=== PATIENT | female | born 1985 | race Hispanic/Latino ===

== ENCOUNTER 2025-07-21 14:41 | Emergency (ER) | payer MEDICAID ==
--- NOTE | 2025-07-21 16:12 | RAD REPORT ---
EXAM: Chest Single View HISTORY: 39 years Female chest catheter placement today COMPARISON: No prior exams FINDINGS: LUNGS/PLEURA: The lungs are clear. No pleural effusions or pneumothorax. No pulmonary edema. CARDIAC/MEDIASTINUM: Mild cardiomegaly UPPER ABDOMEN: No significant abnormality. BONES: No acute abnormality. LINES/TUBES/OTHER: Right IJ approach dialysis catheter with tip overlying the superior cavoatrial pedro ction. IMPRESSION: No evidence of acute cardiopulmonary disease.
[2025-07-21 16:23] LABS: Absolute Lymphocytes (CBC) 0.5 K/uL (0.7-4.9); Hematocrit 34.8 % (36.0-45.0); Hemoglobin 11.2 g/dL (12.0-15.0); MCH 31.7 pg (27.0-35.0); MCHC 32.3 g/dL (32.0-36.0); MCV 98.1 fL (80-100); MPV 8.9 fL (7.6-11.3); Nucleated RBC Absolute Count 0.0 (0-0); Nucleated Red Blood Cells % 0.0 % (0-0); RBC Red Blood Cell Count 3.54 M/uL (3.86-4.86); White Blood Count 7.20 thou/uL (4.3-10.9)
[2025-07-21 16:35] LABS: PT Prothrombin Time 13.0 SECONDS (10-13.0); PTT, Activated Partial Thromb 31.5 SECONDS (27.2-37.4); Protime INR 1.16
[2025-07-21 16:43] LABS: Anion Gap 12.2 mEq/L (5.0-15.0); BUN Blood Urea Nitrogen 52.0 mg/dL (7-18); Glucose Level 89.0 mg/dL (74-106)
[2025-07-21 16:49] LABS: Magnesium 2.2 mg/dL (1.6-2.4); Potassium 4.2 mEq/L (3.5-5.1)
[2025-07-21] MEDS ORDERED: LIDOCAINE 2% W/EPI 1:200,000 MPF 20 ML VIAL IM ONE (16:49)
[2025-07-21] MEDS ORDERED: FENTANYL CITR 100 MCG/2 ML ONE (17:54)
--- NOTE | 2025-07-21 18:27 | EDPHYS ---
Physician Documentation [facility] Name: Adriana Albarran Age: 39 yrs Sex: Female : 1985 Arrival Date: 07/21/2025 Time: 14:41 Bed 24 Private MD: Killian Leiva HPI: 07/21 15:00 This 39 yrs old Female presents to ER via Ambulatory with complaints of cp dialysis cath problem. 15:05 Patient reports replacement of right chest Central Venous Catheter earlier today with cp some bleeding noted prior to discharge. Surgery was performed by DR Hawkins at [facility]. Patient takes Plavix daily. 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 N/A - Hysterectomy, Not me1 Historical: - Allergies: 15:02 PENICILLINS; me1 15:02 Bumetanide; me1 15:02 tramadol; me1 15:02 TETRACYCLINES; me1 15:02 METRONIDAZOLE; me1 15:02 Ampicillin; me1 15:02 Amoxicillin; me1 15:02 Levaquin; me1 15:02 meloxicam; me1 15:02 Bactrim; me1 15:02 Trazodone; me1 - PMHx: 15:02 End stage renal disease; on HD M,W,F; Lupus erythematosus; Hypertensive disorder; me1 Congestive heart failure; Myocardial infarction; - PSHx: 15:02 Coronary Angioplasty; Total abdominal hysterectomy; section; dialysis catheter me1 placement; Appendectomy; lumbar puncture x3; kidney biopsy; - Immunization history:: Adult Immunizations up to date. - Infectious Disease History:: Denies. - Social history:: Smoking status: Patient reports the use of cigarette tobacco products, smokes one-half pack cigarettes per day. ROS: 15:05 Constitutional: Negative for body aches, chills, fever, poor PO intake, cp 15:05 Cardiovascular: Positive for chest pain, Negative for edema, palpitations, cp 15:05 Respiratory: Negative for cough, shortness of breath, wheezing, 15:05 Abdomen/GI: Negative for abdominal pain, vomiting, diarrhea, constipation, 15:05 Skin: Positive for of the right side of chest, central venous catheter, Exam: 15:10 Constitutional: The patient appears in no acute distress, alert, awake, cp non-diaphoretic, non-toxic, well developed, well nourished, uncomfortable, 15:10 Head/Face: Normocephalic, atraumatic. cp 15:10 Eyes: Periorbital structures: appear normal, Conjunctiva: normal, no exudate, no injection, Sclera: no appreciated abnormality, Lids and lashes: appear normal, bilaterally, 15:10 ENT: External ear(s): are unremarkable, Nose: is normal, Mouth: Lips: moist, Oral mucosa: moist, Posterior pharynx: Airway: no evidence of obstruction, patent, 15:10 Neck: ROM/movement: is normal, is supple, without pain, no range of motions limitations, 15:10 Chest/axilla: Inspection: right upper chest dialysis catheter in place with mild active bleeding, bloody dressing in place, tender to palpation, 15:10 Cardiovascular: Rate: normal, Rhythm: regular, JVD: is not appreciated, 15:10 Respiratory: the patient does not display signs of respiratory distress, Respirations: normal, no use of accessory muscles, no retractions, labored breathing, is not present, Breath sounds: are clear throughout, no decreased breath sounds, no stridor, no wheezing, 15:10 Abdomen/GI: Inspection: abdomen appears normal, Palpation: abdomen is soft and non-tender, in all quadrants, 15:10 Neuro: Orientation: to person, place \T\ time. Mentation: is normal, Motor: moves all fours, strength is normal, Gait: is steady, at a normal pace, without difficulty, 15:44 ECG was reviewed by the Attending Physician. cp Vital Signs: 14:57 BP 131 / 76; Pulse 82; Resp 18; Temp 98; Pulse Ox 98% ; Weight 70 kg; Height 5 ft. 3 me1 in. ; Pain 0/10; 16:30 BP 126 / 77; Pulse 71; Resp 16; Pulse Ox 100% on R/A; jb4 17:15 BP 138 / 78; Pulse 72; Resp 16; Pulse Ox 100% on R/A; jb4 18:15 BP 132 / 75; Pulse 73; Resp 16; Pulse Ox 99% on R/A; jb4 14:57 Body Mass Index 27.34 (70.00 kg, 160.02 cm) me1 14:57 Pain Scale: Adult me1 MDM: 14:58 Medical Screening Exam initiated cp 16:00 Differential diagnosis: anemia, pneumothorax, hematoma. 18:25 Data reviewed: vital signs, nurses notes, lab test result(s), EKG, radiologic studies, plain films, and as a result, I will discharge patient. 18:25 I considered the following discharge prescriptions or medication management in the emergency department Medications were administered in the Emergency Department. See MAR. Care significantly affected by the following chronic conditions: Hypertension, Congestive Heart Failure, Chronic Kidney Disease. Counseling: I had a detailed discussion with the patient and/or guardian regarding the historical points, exam findings, and any diagnostic results supporting the discharge/admit diagnosis, lab results, radiology results, to return to the emergency department if symptoms worsen or persist or if there are any questions or concerns that arise at home. Response to treatment: the patient's symptoms have markedly improved after treatment, and as a result, I will discharge patient. 07/21 14:59 Order name: Basic Metabolic Panel; Complete Time: 16:51 07/21 16:51 Interpretation: Normal except: BUN 52; CRE 8.51; GFR 6; CA 8.2. 07/21 14:59 Order name: CBC with Diff; Complete Time: 16:38 07/21 16:38 Interpretation: Normal except: RBC 3.54; HGB 11.2; HCT 34.8; PLT 135; RDW 15.5; JOHANNY% cp 83.8; LYM% 6.8; LYMA 0.5. 07/21 14:59 Order name: Magnesium; Complete Time: 16:51 07/21 16:51 Interpretation: Reviewed. 07/21 14:59 Order name: PT-INR; Complete Time: 16:38 07/21 14:59 Order name: Ptt, Activated; Complete Time: 16:38 07/21 14:59 Order name: XRAY Chest (1 view); Complete Time: 16:38 07/21 18:08 Interpretation: Report review. 07/21 14:59 Order name: Cardiac monitoring; Complete Time: 15:41 07/21 14:59 Order name: EKG - Nurse/Tech; Complete Time: 15:41 07/21 14:59 Order name: IV Saline Lock; Complete Time: 15:59 07/21 14:59 Order name: Labs collected and sent; Complete Time: 15:59 07/21 14:59 Order name: O2 Per Protocol; Complete Time: 15:30 cp 07/21 14:59 Order name: O2 Sat Monitoring; Complete Time: 15:30 cp 07/21 15:16 Order name: Orthostatics; Complete Time: 15:30 cp 07/21 16:52 Order name: Dressing - Wound; Complete Time: 17:07 cp 07/21 16:52 Order name: Gloves, Sterile; Complete Time: 17:07 cp 07/21 16:52 Order name: Setup Suture Tray; Complete Time: 17:07 cp EC:44 Rate is 72 beats/min. Rhythm is regular. [place] interval is normal. QRS interval is normal. cp QT interval is normal. T waves are Inverted in lead aVR. Interpreted by me. Reviewed by me. Administered Medications: 18:02 Drug: fentaNYL (PF) IVP 25 mcg IVP once Route: IVP; Site: right hand; [facility] 18:22 Follow up: Response: No adverse reaction jb 18:22 Not Given (Physician Discretion): tranexamic [id number] mg IV at calculated rate once; jb4 administer at a rate not to exceed 100 mg per min 18:29 Not Given (Physician Discretion): lidocaine(2 %) 20 ml 5 ml Infiltration once; to jb4 bedside with epinephrine Disposition: 07/22 09:05 Co-signature as Attending Physician, Killian Anderson MD I agree with the assessment and [facility] plan of care. 14:55 Chart complete. cp Disposition Summary: 07/21/25 18:26 Discharge Ordered Notes: Location: Home cp Problem: new cp Symptoms: have improved cp Condition: Stable cp Diagnosis - Other complication of vascular dialysis catheter cp - Encounter for attention to dressings, sutures and drains cp Followup: cp - With: Private Physician - When: 1 - 2 days - Reason: Wound Recheck Discharge Instructions: - Discharge Summary Sheet cp - How to Change Your Wound Dressing cp - Central Line Dialysis Access Placement, Care After cp - Central Line Dialysis Access Placement cp Forms: - Medication Reconciliation Form cp - Antibiotic Education cp - Prescription Opioid Use cp - Patient Portal Instructions cp - Leadership Thank You Letter cp Signatures: Dispatcher [employer] Killian Au MD MD cha Page, Corey, PAStevan PAStevan cp Yang Yates RN RN jb4 Charmaine Ruvalcaba RN RN me1 Corrections: (The following items were deleted from the chart) 07/21 15:07 15:02 PMHx: dialysis catheter placement; me1 me1
--- NOTE | 2025-07-21 18:27 | ER ---
Nurse's Notes [facility] Name: Adriana Albarran Age: 39 yrs Sex: Female : 1985 Arrival Date: 07/21/2025 Time: 14:41 Bed 24 Private MD: Diagnosis: Other complication of vascular dialysis catheter;Encounter for attention to dressings, sutures and drains Presentation: 07/21 14:57 Chief complaint: Patient states: had dialysis catheter (R chest wall) replaced this me1 morning in [place]. Some bleeding noted at time of discharge but was told that dialysis would take care of it. Patient went to dialysis and they wont touch it, sent patient back to ER. Went to ER in [place] and wasn't able to be seen so they left and came here. Catheter has been bleeding since 10 am today. Has dressing to right chest wall reinforced with gauze. Reports feeling light headed. Coronavirus screen: Vaccine status: Patient reports being unvaccinated. Ebola Screen: No symptoms or risks identified at this time. Initial Sepsis Screen: Does the patient meet any 2 criteria? No. Patient's initial sepsis screen is negative. Does the patient have a suspected source of infection? No. Patient's initial sepsis screen is negative. Risk Assessment: Do you want to hurt yourself or someone else? Patient reports no desire to harm self or others. Onset of symptoms was July 21, 2025 at 10:00. 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 - Hysterectomy, Not me1 Historical: - Allergies: 15:02 PENICILLINS; me1 15:02 Bumetanide; me1 15:02 tramadol; me1 15:02 TETRACYCLINES; me1 15:02 METRONIDAZOLE; me1 15:02 Ampicillin; me1 15:02 Amoxicillin; me1 15:02 Levaquin; me1 15:02 meloxicam; me1 15:02 Bactrim; me1 15:02 Trazodone; me1 - PMHx: 15:02 End stage renal disease; on HD M,W,F; Lupus erythematosus; Hypertensive disorder; me1 Congestive heart failure; Myocardial infarction; - PSHx: 15:02 Coronary Angioplasty; Total abdominal hysterectomy; section; dialysis catheter me1 placement; Appendectomy; lumbar puncture x3; kidney biopsy; - Immunization history:: Adult Immunizations up to date. - Infectious Disease History:: Denies. - Social history:: Smoking status: Patient reports the use of cigarette tobacco products, smokes one-half pack cigarettes per day. Screenin:53 [facility] ED Fall Risk Assessment (Adult) History of falling in the last 3 months, jb4 including since admission No falls in past 3 months (0 pts) Confusion or Disorientation No (0 pts) Intoxicated or Sedated No (0 pts) Impaired Gait No (0 pts) Mobility Assist Device Used No (0 pt) Altered Elimination No (0 pt) Score/Fall Risk Level 0 - 2 = Low Risk Oriented to surroundings, Maintained a safe environment. Abuse screen: Denies threats or abuse. Nutritional screening: No deficits noted. Tuberculosis screening: No symptoms or risk factors identified. Assessment: 15:30 General: Appears in no apparent distress. comfortable, Behavior is calm, cooperative, jb4 appropriate for age, Dialysis catheter site noted to be oozing blood. Pt reports it has not stopped since it was inserted. Pt has gauze applied to the area.. Pain: Denies pain. Neuro: Level of Consciousness is awake, alert, obeys commands, Oriented to person, place, time, situation. Cardiovascular: Patient's skin is warm and dry. Respiratory: Airway is patent Respiratory effort is even, unlabored, Respiratory pattern is regular, symmetrical. Derm: Skin is intact, Skin is pink, warm \T\ dry. Musculoskeletal: Circulation, motion, and sensation intact. Range of motion: intact in all extremities. 16:30 Reassessment: Patient appears in no apparent distress at this time. Patient and/or jb4 family updated on plan of care and expected duration. Pain level reassessed. Patient is alert, oriented x 3, equal unlabored respirations, skin warm/dry/pink. 17:20 Reassessment: Patient appears in no apparent distress at this time. Patient and/or jb4 family updated on plan of care and expected duration. Pain level reassessed. Patient is alert, oriented x 3, equal unlabored respirations, skin warm/dry/pink. Provider assessing and redressing catheter site. 18:20 Reassessment: Provider at bedside assessing dressing. Report bleeding appears to have jb4 stopped and tranexamic acid is not needed at this time. 18:23 Reassessment: Patient appears in no apparent distress at this time. Patient and/or jb4 family updated on plan of care and expected duration. Pain level reassessed. Patient is alert, oriented x 3, equal unlabored respirations, skin warm/dry/pink. Vital Signs: 14:57 BP 131 / 76; Pulse 82; Resp 18; Temp 98; Pulse Ox 98% ; Weight 70 kg; Height 5 ft. 3 me1 in. ; Pain 0/10; 16:30 BP 126 / 77; Pulse 71; Resp 16; Pulse Ox 100% on R/A; jb4 17:15 BP 138 / 78; Pulse 72; Resp 16; Pulse Ox 100% on R/A; jb4 18:15 BP 132 / 75; Pulse 73; Resp 16; Pulse Ox 99% on R/A; jb4 14:57 Body Mass Index 27.34 (70.00 kg, 160.02 cm) me1 14:57 Pain Scale: Adult ky1 ED Course: 14:43 Patient arrived in ED. im 14:44 Killian Artis PA-C is PHCP. cp 14:44 Killian Anderson MD is Attending Physician. cp 15:02 Triage completed. me1 15:02 Arm band placed on Patient placed in waiting room. me1 15:53 Patient has correct armband on for positive identification. Bed in low position. Call jb4 light in reach. Side rails up X 1. Provided Education on: plan of care. 16:00 Initial lab(s) drawn, by factory laborer, sent to lab. Inserted saline lock: 22 gauge in right ts3 hand, using aseptic technique. Blood collected. Flushed with 10 mL NS. 16:00 EKG done, by television production technician. ts3 16:06 XRAY Chest (1 view) In Process Unspecified. EDMS 17:07 Yang Yates, LORI is Primary Nurse. jb4 18:47 No provider procedures requiring assistance completed. IV discontinued, intact, jb4 bleeding controlled, No redness/swelling at site. Pressure dressing applied. Administered Medications: 18:02 Drug: fentaNYL (PF) IVP 25 mcg IVP once Route: IVP; Site: right hand; jb4 18:22 Follow up: Response: No adverse reaction jb4 18:22 Not Given (Physician Discretion): tranexamic [id number] mg IV at calculated rate once; jb4 administer at a rate not to exceed 100 mg per min 18:29 Not Given (Physician Discretion): lidocaine(2 %) 20 ml 5 ml Infiltration once; to jb4 bedside with epinephrine Medication: 18:47 VIS not applicable for this client. jb4 Outcome: 18:26 Discharge ordered by . fay 18:47 Discharged to home ambulatory, with family, jb 18:47 Condition: stable 18:47 Discharge instructions given to patient, Instructed on discharge instructions, follow up and referral plans. Demonstrated understanding of instructions, follow-up care, 18:49 Patient left the ED. jb4 Signatures: Dispatcher [employer] EDMS Killian Artis PA-C PA-C cp Bryson, James RN RN jb4 Lacey Bradford Michelle RN RN me1 Nicole Ruiz ts3 Corrections: (The following items were deleted from the chart) 15:07 15:02 PMHx: dialysis catheter placement; ky1 ky1 18:29 17:20 Lidocaine Infiltration (2 %) 20 ml 5 ml Infiltration; administered by provider [id number]
[2025-07-21 19:37] VITALS: TEMP 98
[2025-07-21 19:40] VITALS: BP 132/75; O2SAT 99
== END 2025-07-21 18:49 | disposition home or self-care (01) ==
LOC: ER 14:41
DX: T82.49XA Other complication of vascular dialysis catheter, initial encounter (principal); Z48.01 Encounter for change or removal of surgical wound dressing; I13.2 Hypertensive heart and chronic kidney disease with heart failure and with stage 5 chronic kidney disease, or end stage renal disease; N18.6 End stage renal disease; I50.9 Heart failure, unspecified; Z99.2 Dependence on renal dialysis; F17.210 Nicotine dependence, cigarettes, uncomplicated
CPT/HCPCS: 93005; 85025; 80048; 36415; 83735; 85610; 85730; 71045; 96374; 99284; J3010

== ENCOUNTER 2025-08-28 16:14 | Emergency (ER) | payer MEDICAID ==
[2025-08-28] MEDS ORDERED: ACETAMINOPHEN 500 MG TAB ONE (17:17)
[2025-08-28 17:30] LABS: Absolute Lymphocytes (CBC) 0.9 K/uL (0.7-4.9); Hematocrit 33.7 % (36.0-45.0); Hemoglobin 10.8 g/dL (12.0-15.0); MCH 31.2 pg (27.0-35.0); MCHC 32.0 g/dL (32.0-36.0); MCV 97.7 fL (80-100); MPV 8.6 fL (7.6-11.3); Nucleated RBC Absolute Count 0.0 (0-0); Nucleated Red Blood Cells % 0.0 % (0-0); RBC Red Blood Cell Count 3.44 M/uL (3.86-4.86); White Blood Count 9.30 thou/uL (4.3-10.9)
--- NOTE | 2025-08-28 17:48 | RAD REPORT ---
EXAM: CT Head Brain Wo Cont HISTORY: Headache;Dizziness COMPARISON: None TECHNIQUE: Multiple contiguous axial images were obtained for a CT of the brain without contrast. Sag ittal and coronal reformats were performed. One or more of the following dose reduction techniques were used: Automated exposure control, adjus tment of the mA and kV according to patient size, and iterative reconstruction. Unless otherwise specified, incidental findings do not require dedicated imaging follow-up. FINDINGS: No evidence of hydrocephalus, intracranial hemorrhage, or extra-axial fluid collection. The brain is normal in morphology. The calvarium is intact. The visualized paranasal sinuses and mastoid air cells are essentially clear . IMPRESSION: No evidence of acute intracranial abnormality.
[2025-08-28 17:51] LABS: AST/SGOT 15 U/L (15-37); Albumin 2.7 g/dL (3.4-5.0); Albumin/Globulin Ratio 0.6 (1.1-1.8); Alkaline Phosphatase 112 U/L (45-117); Anion Gap 8.6 mEq/L (5.0-15.0); BUN Blood Urea Nitrogen 26 mg/dL (7-18); Globulin 4.2 g/dL (2.3-3.5); Glucose Level 105 mg/dL (74-106); Magnesium 2.2 mg/dL (1.6-2.4); Potassium 3.6 mEq/L (3.5-5.1)
[2025-08-28 17:52] LABS: ALT/SGPT < 14 U/L (13-56); Bilirubin Indirect, Calculated 0.2 mg/dL (0.2-0.8)
[2025-08-28 17:54] LABS: Influenza A Ag Negative; Influenza B Ag Negative; SARS-CoV-2 Antigen Rapid Res Negative (Negative)
--- NOTE | 2025-08-28 19:07 | ER ---
Nurse's Notes [facility] Name: Adriana Albarran Age: 39 yrs Sex: Female : 1985 Arrival Date: 08/28/2025 Time: 16:14 Bed 17 Private MD: Diagnosis: Headache Presentation: 08/28 16:31 Chief complaint: Patient states: CHRIS, nausea, dizziness, and swelling to head area for 1 ll1 week. Coronavirus screen: Client denies travel out of the [place] in the last 14 days. Ebola Screen: Patient denies travel to an Ebola-affected area in the 21 days before illness onset. Initial Sepsis Screen: Does the patient meet any 2 criteria? No. Patient's initial sepsis screen is negative. Does the patient have a suspected source of infection? No. Patient's initial sepsis screen is negative. Risk Assessment: Do you want to hurt yourself or someone else? Patient reports no desire to harm self or others. Onset of symptoms was August 21, 2025. 16:31 Method Of Arrival: Ambulatory 1 16:31 Acuity: ENEIDA 3 ll1 Triage Assessment: 16:27 General: Appears uncomfortable, Behavior is calm, cooperative, appropriate for age, ll1 Smells of. Pain: Complains of pain in head Pain currently is 9 out of 10 on a pain scale. Quality of pain is described as aching, Pain began 1 week. Neuro: Reports dizziness, headache weakness. GI: Reports nausea. 16:45 Headache History: The patient has had previous headaches and this one is similar to jp5 previous episodes. Pain: Also complains of no other associated symptoms. Historical: - Allergies: 16:27 Amoxicillin; ll1 16:27 Ampicillin; ll1 16:27 Bactrim; ll1 16:27 Bumetanide; ll1 16:27 Levaquin; ll1 16:27 meloxicam; ll1 16:27 metronidazole; ll1 16:27 PENICILLINS; ll1 16:27 TETRACYCLINES; ll1 16:27 tramadol; ll1 16:27 Trazodone; ll1 - PMHx: 16:27 Congestive heart failure; End stage renal disease; on HD M; Hypertensive disorder; ll1 Lupus erythematosus; Myocardial infarction; - PSHx: 16:27 Appendectomy; section; Coronary Angioplasty; dialysis catheter placement; ll1 kidney biopsy; lumbar puncture x3; Total abdominal hysterectomy; - Immunization history:: Adult Immunizations up to date. - Infectious Disease History:: Denies. - Social history:: Smoking status: Patient reports the use of cigarette tobacco products, smokes .3 packs per day. Screenin:45 [facility] ED Fall Risk Assessment (Adult) History of falling in the last 3 months, jp5 including since admission No falls in past 3 months (0 pts) Confusion or Disorientation No (0 pts) Intoxicated or Sedated No (0 pts) Impaired Gait No (0 pts) Mobility Assist Device Used No (0 pt) Altered Elimination No (0 pt) Score/Fall Risk Level 0 - 2 = Low Risk Oriented to surroundings, Maintained a safe environment, Educated pt \T\ family on fall prevention, incl call for assistance when getting out of bed, Assessed \T\ reinforced patient's understanding of fall precautions, Provided non-skid footwear, Hourly rounding (assess needs \T\ fall precautionary measures) done, Used ambulatory aids as needed (educated on \T\ assisted with), Used gait belt as appropriate. Abuse screen: Denies threats or abuse. Denies injuries from another. Nutritional screening: No deficits noted. Tuberculosis screening: No symptoms or risk factors identified. Assessment: 16:45 General: Appears in no apparent distress. Behavior is calm, cooperative, appropriate jp5 for age. Pain: Complains of pain in head Pain currently is 8 out of 10 on a pain scale. Neuro: Level of Consciousness is awake, alert, obeys commands, Oriented to person, place, time, situation, Appropriate for age Reports dizziness. GI: Reports nausea. 17:43 Reassessment: Patient appears in no apparent distress at this time. Patient and/or jp5 family updated on plan of care and expected duration. Pain level reassessed. Patient is alert, oriented x 3, equal unlabored respirations, skin warm/dry/pink. Vital Signs: 16:31 BP 112 / 73; Pulse 98; Resp 17; Temp 98.5; Pulse Ox 98% ; Weight 65 kg; Height 5 ft. 3 ll1 in. ; 17:00 BP 116 / 68; Pulse 87; Resp 18; Pulse Ox 100% on R/A; jp5 16:31 Body Mass Index 25.38 (65.00 kg, 160.02 cm) ll1 [place] Coma Score: 20:13 Eye Response: spontaneous(4). Motor Response: obeys commands(6). Verbal Response: kb oriented(5). Total: 15. ED Course: 16:18 Patient arrived in ED. sj2 16:20 Theodora Martin FNP-C [facility]. kb 16:20 Camila Hussein MD is Attending Physician. kb 16:24 Arm band placed on Patient placed in an exam room, on a stretcher. ll1 16:32 Triage completed. ll1 16:45 Patient has correct armband on for positive identification. Bed in low position. Call jp5 light in reach. Side rails up X 1. Provided Education on: CALL LIGHT USE. 16:45 No provider procedures requiring assistance completed. jp5 16:59 CT Head Brain wo Cont In Process Unspecified. EDMS 17:08 Karime Albarran, RN is Primary Nurse. jp5 17:11 Basic Metabolic Panel Sent. jp5 17:11 CBC with Diff Sent. jp5 17:11 COVID-19 Ag + Flu A+B Ag Sent. jp5 17:11 Hepatic Function Sent. jp5 17:11 Magnesium Sent. jp5 17:14 Inserted saline lock: 22 gauge in right hand, using aseptic technique. Blood collected. rk3 Flushed with 10 mL NS. 19:13 IV discontinued, intact, bleeding controlled, No redness/swelling at site. Pressure jp5 dressing applied. Administered Medications: 17:26 Drug: Acetaminophen PO 1000 mg PO once Route: PO; jp5 Medication: 16:45 VIS not applicable for this client. jp5 Outcome: 19:06 Discharge ordered by . amadeo 19:13 Discharged to home ambulatory, jp5 19:13 Condition: stable 19:13 Discharge instructions given to patient, Instructed on discharge instructions, follow up and referral plans. Demonstrated understanding of instructions, follow-up care, 19:14 Patient left the ED. jp5 Signatures: Dispatcher [employer] EDFL Theodora Martin FNP-C FNP-Ckb Lewis, Lynsay RN RN ll1 Karime Albarran, RN RN jp5 Ghazala Sanches sj2 Shubham Blum rk3 Corrections: (The following items were deleted from the chart) 16:38 16:31 Chief complaint: Patient states: CHRIS, swelling for 1 week ll1 ll1
--- NOTE | 2025-08-28 19:07 | EDPHYS ---
Physician Documentation [facility] Name: Adriana Albarran Age: 39 yrs Sex: Female : 1985 Arrival Date: 08/28/2025 Time: 16:14 Bed 17 Private MD: ED Physician Camila Hussein HPI: 08/28 16:24 This 39 yrs old Female presents to ER via Unassigned with complaints of kb Headache, HEAD SWELLING. 16:24 Pt is a 39 year old female who presents for headache, nausea, dizziness, vomiting that kb started a week ago. Denies fever. REports cough. MWF dialysis, no missed days. Historical: - Allergies: 16:27 Amoxicillin; ll1 16:27 Ampicillin; ll1 16:27 Bactrim; ll1 16:27 Bumetanide; ll1 16:27 Levaquin; ll1 16:27 meloxicam; ll1 16:27 metronidazole; ll1 16:27 PENICILLINS; ll1 16:27 TETRACYCLINES; ll1 16:27 tramadol; ll1 16:27 Trazodone; ll1 - PMHx: 16:27 Congestive heart failure; End stage renal disease; on HD M; Hypertensive disorder; ll1 Lupus erythematosus; Myocardial infarction; - PSHx: 16:27 Appendectomy; section; Coronary Angioplasty; dialysis catheter placement; ll1 kidney biopsy; lumbar puncture x3; Total abdominal hysterectomy; - Immunization history:: Adult Immunizations up to date. - Infectious Disease History:: Denies. - Social history:: Smoking status: Patient reports the use of cigarette tobacco products, smokes .3 packs per day. ROS: 16:25 Constitutional: As per HPI kb Exam: 16:25 Constitutional: This is a well developed, well nourished patient who is awake, alert, kb and in no acute distress. Head/Face: Normocephalic, atraumatic. ENT: Moist Mucous membranes Cardiovascular: Regular rate Respiratory: Respirations even and unlabored. No increased work of breathing. Talking in full sentences Skin: Warm, dry with normal turgor. Normal color. MS/ Extremity: Pulses equal, no cyanosis. Neurovascular intact. Full, normal range of motion. Neuro: Awake and alert, GCS 15, oriented to person, place, time, and situation. Vital Signs: 16:31 BP 112 / 73; Pulse 98; Resp 17; Temp 98.5; Pulse Ox 98% ; Weight 65 kg; Height 5 ft. 3 ll1 in. ; 17:00 BP 116 / 68; Pulse 87; Resp 18; Pulse Ox 100% on R/A; jp5 16:31 Body Mass Index 25.38 (65.00 kg, 160.02 cm) ll1 [place] Coma Score: 20:13 Eye Response: spontaneous(4). Motor Response: obeys commands(6). Verbal Response: kb oriented(5). Total: 15. MDM: 16:21 Medical Screening Exam initiated kb 19:06 Data reviewed: vital signs, nurses notes. kb 20:13 Differential diagnosis: intracerebral hemorrhage, subdural hematoma, Hydrocephalus, kb viral illness, abnormal electrolytes. Test considered but Not performed: MRI: MRI head, MRI unavailable, no indication for emergent MRI. Counseling: I had a detailed discussion with the patient and/or guardian regarding the historical points, exam findings, and any diagnostic results supporting the discharge/admit diagnosis, lab results, radiology results, the need for outpatient follow up, a family practitioner, to return to the emergency department if symptoms worsen or persist or if there are any questions or concerns that arise at home. 08/28 16:26 Order name: Basic Metabolic Panel; Complete Time: 18:00 kb 08/28 16:26 Order name: CBC with Diff; Complete Time: 17:32 kb 08/28 16:26 Order name: Hepatic Function; Complete Time: 18:00 kb 08/28 16:26 Order name: Magnesium; Complete Time: 18:00 kb 08/28 16:44 Order name: COVID-19 Ag + Flu A+B Ag; Complete Time: 18:00 kb 08/28 16:26 Order name: CT Head Brain wo Cont; Complete Time: 17:49 kb 08/28 16:26 Order name: Cardiac monitoring; Complete Time: 17:24 kb 08/28 16:26 Order name: EKG - Nurse/Tech; Complete Time: 17:24 kb 08/28 16:26 Order name: IV Saline Lock; Complete Time: 17:11 kb 08/28 16:26 Order name: Labs collected and sent; Complete Time: 17:11 kb 08/28 16:26 Order name: NPO; Complete Time: 17:24 kb 08/28 16:26 Order name: O2 Per Protocol; Complete Time: 17:11 kb 08/28 16:26 Order name: O2 Sat Monitoring; Complete Time: 17:11 kb Administered Medications: 17:26 Drug: Acetaminophen PO 1000 mg PO once Route: PO; jp5 Disposition Summary: 08/28/25 19:06 Discharge Ordered Notes: Location: Home kb Condition: Stable kb Diagnosis - Headache kb Followup: kb - With: Emergency Department - When: As needed - Reason: Worsening of condition Followup: kb - With: Private Physician - When: 2 - 3 days - Reason: Recheck today's complaints, Continuance of care, Re-evaluation by your physician Discharge Instructions: - Discharge Summary Sheet kb - General Headache Without Cause, [id number] kb Forms: - Medication Reconciliation Form kb - Antibiotic Education kb - Prescription Opioid Use kb - Patient Portal Instructions kb - Leadership Thank You Letter kb Signatures: Dispatcher [employer] EDTheodora Sanchez, ILDEFONSO-C ILDEFONSO-Zoey Brewster RN RN ll1 Karime Albarran RN RN jp5 Corrections: (The following items were deleted from the chart) 16:26 16:24 Pt is a 39 year old female who presents for headache, nausea, dizziness, vomiting kb that started a week ago. Denies fever. REports cough. . kb 16:45 16:44 COVID-19 Ag + Flu A+B [id number].LAB.BRZ ordered. EDMS EDMS
[2025-08-28 19:44] VITALS: TEMP 98.5
[2025-08-28 19:45] VITALS: BP 116/68; O2SAT 100
== END 2025-08-28 19:14 | disposition home or self-care (01) ==
LOC: ER 16:14
DX: R51.9 Headache, unspecified (principal); I13.2 Hypertensive heart and chronic kidney disease with heart failure and with stage 5 chronic kidney disease, or end stage renal disease; N18.6 End stage renal disease; I50.9 Heart failure, unspecified; Z99.2 Dependence on renal dialysis; Z11.52 Encounter for screening for COVID-19; Z72.0 Tobacco use
CPT/HCPCS: 36415; 70450; 80048; 80076; 83735; 85025; 87428; 99284